=== PATIENT | male | born 1995 | race Caucasian/White ===

== ENCOUNTER 2017-02-12 14:39 | Inpatient (IN) | payer BC ==
[2017-02-12] MEDS ORDERED: IPRATROPIUM/ALBUTEROL 3 ML DEYVIAL IH ONE ×2 (14:44→15:44)
[2017-02-12] MEDS ORDERED: NS 1,000 ML IV ONE ×3 (14:44→16:28)
--- NOTE | 2017-02-12 14:46 | EDPHY ---
H & P HPI/ROS: HPI CHIEF COMPLAINT: Shortness of breath HISTORY OF PRESENT ILLNESS: This patient otherwise healthy 21-year-old male no significant medical history does not take any daily medications he presents emergency room by EMS after he went to an urgent care today for shortness of breath and wheezing his oxygen level was noted to be low in the 80s the Urgent Care called 911 gave him a DuoNeb. EMS arrived and evaluated was tachypneic, diffuse wheezing throughout all lung gruber moderate amount of respiratory distress. He is brought to the emergency room with a DuoNeb breathing treatment EN route. IV Solu-Medrol already given. Upon arrival here in emergency room is wheezing diffusely, tachypneic in the 30s , with bronchitic sounding cough. He does admit to no fever but does admit to productive sputum clear. Is noted to be tachycardic here. He tells me approximately a month ago was diagnosed with pneumonia completed a course of antibiotics. Went to a recent concert in [place] where he undertook a lot of smoking cigarettes and marijuana he tells me his lung shortness of breath got worse. Denies chest pain. Denies vomiting. Past Medical History: Pneumonia recently 1 month ago Past Surgical History: Denies recent surgical history Social History: Daily marijuana use, occasional tobacco Family History: Noncontributory ROS REVIEW OF SYSTEMS: A comprehensive 10 point review of systems is otherwise negative aside from elements mentioned in the history of present illness. Exam Constitutional appears nontoxic triage nursing summary reviewed, vital signs reviewed, awake/alert. Eyes normal conjunctivae and sclera, EOMI, PERRLA. HENT normal inspection, atraumatic, moist mucus membranes, no epistaxis, neck supple/ no meningismus, no raccoon eyes. Respiratory decreased breath sounds bilaterally but audible wheezing, Cardiovascular tachycardic, regular rhythm, no murmur, no edema, distal pulses normal. Gastrointestinal soft, non-tender, no rebound, no guarding, normal bowel sounds, no distension, no pulsatile mass. Genitourinary no CVA tenderness. Musculoskeletal no midline vertebral tenderness, full range of motion, no calf swelling, no tenderness of extremities, no meningismus, good pulses, neurovascularly intact. Skin pink, warm, & dry, no rash, skin atraumatic. Neurologic awake, alert and oriented x 3, AAOx3, moves all 4 extremities equally, motor intact, sensory intact, CN II-XII intact, normal cerebellar, normal vision, normal speech. Psychiatric normal mood/affect. Heme/Lymph/Immune no lymphadenopathy. Differential Diagnosis: Includes but is not limited to in a particular order, bronchitis, viral pneumonia, bacterial pneumonia, pneumothorax Medical Decision Making: Plan for this patient IV establishment, blood work, blood cultures, lactic acid, full chorus dancer, EKG, two view chest x-ray, DuoNeb breathing treatment, IV fluid bolus. Re-evaluation. Re-evaluation: EKG interpretation by me on record in [employer] system. Impression and time of EKG 15 10, this is sinus tachycardia rate of 121. Otherwise unremarkable EKG. 1544; re-evaluation at this time patient continues to wheeze however much improved after DuoNeb breathing treatment. He has received 2 L of fluid at this time. His heart rate is noted to be tachycardic in the 120s down from 1 50s when he arrived. He is improving. Chest x-rays reviewed shows no pneumonia. Plan for this patient 2nd DuoNeb breathing treatment re-evaluate. 1629: I did re-evaluate this patient at this time. He continues to be tachycardic. He did receive a 2nd DuoNeb breathing treatment which improved his lung aeration. He still wheezing. Due to ongoing wheezing, however no significant respiratory distress, ongoing tachycardia patient need to be admitted for bronchitis and pulmonary toilet. Chest x-ray reviewed shows no pneumonia. He is afebrile. Tachycardia has persistent most likely due to combination of wheezing, bronchitis, DuoNeb breathing treatments. And dehydration. This patient did have initial elevated lactic. After 2 L of fluids lactic did slightly go up. He does not appear septic. Does not have elevated white count he does not have a fever. There is no pneumonia on x-ray. I will not change the lactic acid. His lactic acid mainly up due to the wheezing, tachypnea, dehydration is behind on fluids. He is getting a 3rd L of fluid. Dr. Torres has accepted this patient. Patient be admitted to PCU. Source: Patient, EMS - Medical/Surgical History Hx Asthma: No Hx Chronic Respiratory Disease: No Hx Diabetes: No Hx Cardiac Disease: No Hx Renal Disease: No Hx Cirrhosis: No Hx Alcoholism: No Hx HIV/AIDS: No Hx Splenectomy or Spleen Trauma: No Other PMH: heart "electrical" issue - Social History Smoking Status: Current every day smoker Constitutional: Initial Vital Signs Temperature (C) 37.1 C 02/12/17 14:53 Heart Rate 152 H 02/12/17 14:53 Respiratory Rate 22 H 02/12/17 14:53 Blood Pressure 134/89 H 02/12/17 14:53 O2 Sat (%) 95 02/12/17 14:53 O2 Delivery Mode Room Air O2 (L/minute) 2 Allergies/Adverse Reactions: No Known Allergies Allergy (Unverified 12/02/15 02:06) Home Medications: Medication Instructions Recorded NK [No Known Home Meds] 12/02/15 Medical Decision Making - Data Points Laboratory Results: Laboratory Results 02/12/17 14:43 02/12/17 14:43 Medications Given: Discontinued Medications Albuterol/Ipratropium (Duoneb) 3 ml IH EDNOW ONE Stop: 02/12/17 14:45 Last Admin: 02/12/17 15:08 Dose: 3 ml Albuterol/Ipratropium (Duoneb) 3 ml IH EDNOW ONE Stop: 02/12/17 15:45 Last Admin: 02/12/17 15:53 Dose: 3 ml Albuterol/Ipratropium (Duoneb) 3 ml IH Q6HRS PRN PRN Reason: Short of Breath/Dyspnea Stop: 08/11/17 17:22 Last Admin: 02/13/17 09:05 Dose: 3 ml Azithromycin (Zithromax) 500 mg PO DAILY MABEL PRN Reason: Protocol Stop: 03/14/17 17:44 Last Admin: 02/12/17 17:40 Dose: 500 mg Sodium Chloride (Ns) 1,000 mls @ 0 mls/hr IV ONCE ONE; Wide Open PRN Reason: Protocol Stop: 02/12/17 14:45 Last Admin: 02/12/17 15:08 Dose: 1,000 mls Sodium Chloride (Ns) 1,000 mls @ 0 mls/hr IV ONCE ONE PRN Reason: Wide Open Stop: 02/12/17 15:03 Last Admin: 02/12/17 15:09 Dose: 1,000 mls Sodium Chloride (Ns) 1,000 mls @ 0 mls/hr IV ONCE ONE PRN Reason: Wide Open Stop: 02/12/17 16:29 Last Admin: 02/12/17 16:42 Dose: 1,000 mls Sodium Chloride (Ns) 1,000 mls @ 150 mls/hr IV CONT MABEL Stop: 08/11/17 17:29 Last Admin: 02/12/17 20:00 Dose: 1,000 mls Methylprednisolone Sodium Succinate (Solu-Medrol) 125 mg IVP ONCE ONE Stop: 02/13/17 00:24 Last Admin: 02/13/17 00:44 Dose: 125 mg Prednisone (Prednisone) 40 mg PO DAILY [facility] Stop: 08/11/17 17:29 Last Admin: 02/13/17 08:23 Dose: 40 mg Departure - Departure Disposition: [facility] Inpatient Acute Clinical Impression: Acute bronchitis Qualifiers: Bronchitis organism: unspecified organism Qualified Code(s): J20.9 - Acute bronchitis, unspecified Condition: Serious
[2017-02-12 14:53] LABS: % IMMATURE GRANULYOCYTES 0.3 % (0.0-1.1); ABSOLUTE IMMATURE GRANULOCYTES 0.03 10^3/uL (0.00-0.10); ADD DIFF? NO; ADD MORPH? NO; ADD SCAN? NO; ATYPICAL LYMPHOCYTE FLAG 30 (0-99); FRAGMENT RBC FLAG 0 (0-99); HEMATOCRIT 49.5 % (40.0-51.0); HEMOGLOBIN 17.1 g/dL (13.7-17.5); LEFT SHIFT FLG 0 (0-99); LIPEMIA HEMOLYSIS FLAG 90 (0-99); MEAN CELL HEMOGLOBIN 30.2 pg (27.9-34.1); MEAN CELL HEMOGLOBIN CONCENTR. 34.5 g/dL (32.4-36.7); MEAN CELL VOLUME 87.5 fL (81.5-99.8); MEAN PLATELET VOLUME 8.7 fL (8.7-11.7); PLATELET CLUMPS FLAG 0 (0-99); PLATELET COUNT 327 10^3/uL (150-400); RED BLOOD CELL COUNT 5.66 10^6/uL (4.40-6.38); RED CELL DISTRIBUTION WIDTH 12.1 % (11.5-15.2)
--- NOTE | 2017-02-12 15:12 | CPEKG ---
Heart Rate: 121 RR Interval: 496 P-R Interval: 120 QRSD Interval: 92 QT Interval: 324 QTC Interval: 460 P Wilmer: 86 QRS Wilmer: 89 T Wave Wilmer: 73 EKG Severity - ABNORMAL ECG - EKG Impression: SINUS TACHYCARDIA EKG Impression: HUAN, CONSIDER BIATRIAL ABNORMALITIES EKG Impression: INFERIOR Q WAVES, PROBABLY NORMAL VARIATION Electronically Signed By: Michel Ho 12-Feb-2017 20:01:12
[2017-02-12 15:13] LABS: ANION GAP 15 mEq/L (8-16); CALCIUM 9.8 mg/dL (8.5-10.4); CARBON DIOXIDE 23 mEq/l (22-31); CHLORIDE 102 mEq/L (97-110); CREATININE 0.9 mg/dL (0.7-1.3); GLOMERULAR FILTRATION RATE > 60; GLUCOSE 171 mg/dL (70-100); POTASSIUM 4.4 mEq/L (3.5-5.2); SODIUM 140 mEq/L (134-144)
[2017-02-12] MEDS ORDERED: ONDANSETRON 4 MG/2 ML VIAL IVP PRN (17:21)
[2017-02-12] MEDS ORDERED: ACETAMINOPHEN 325 MG TAB PO PRN (17:21)
[2017-02-12] MEDS ORDERED: ONDANSETRON DISINTEGRATING 4 MG TAB PO PRN (17:21)
[2017-02-12] MEDS ORDERED: NS 1,000 ML IV SCH (17:30)
[2017-02-12] MEDS: predniSONE 20 MG TAB PO SCH (17:39)
[2017-02-12] MEDS: BENZONATATE 100 MG CAP PO PRN (17:40)
[2017-02-12] MEDS ORDERED: AZITHROMYCIN 250 MG TAB PO SCH (17:45)
[2017-02-12 17:48] LABS: ALBUMIN 4.7 g/dL (3.5-5.0); BILIRUBIN,TOTAL 1.3 mg/dL (0.1-1.4); BILIRUBIN-CONJUGATED 0.5 mg/dL (0.0-0.5); BILIRUBIN-UNCONJUGATED 0.8 mg/dL (0.0-1.1); TOTAL PROTEIN 7.5 g/dL (6.3-8.2)
--- NOTE | 2017-02-12 18:05 | GHP ---
[f rep st] HISTORY AND PHYSICAL DATE OF ADMISSION: 02/12/2017 CHIEF COMPLAINT: Tachycardia, acute hypoxia. HISTORY OF PRESENT ILLNESS: a 21-year-old male with a past medical history of SVT, status post ablation in 2014 presenting to the ER by EMS after having acute shortness of breath and wheezing. Was initially seen at Urgent Care where oxygen levels was in the 80s. He was tachypneic to the 40s and tachy to 150s. He reports fevers, chills and sweats last night. One episode of emesis last night with small streaks of blood. One episode of diarrhea here in ED today. Also, c/o a sore throat and productive cough of yellow sputum for the last couple days. He was diagnosed with pneumonia a month ago and completed course of antibiotics. Was in [place] this past weekend for a music festival and smoked at least a pack of cigarettes a day, which he normally does not do, as well as marijuana. He denies other illicits. REVIEW OF SYSTEMS: I completed a 10-point review of systems, negative except as noted. PAST SURGICAL HISTORY: SVT with a history of ablation in 2014 at [place]. PAST MEDICAL HISTORY: None. MEDICATIONS: None. ALLERGIES: None. SOCIAL HISTORY: Lives in [place] Does not normally smoke tobacco, but smoked a pack a day this past weekend, smoked marijuana this weekend. Denies alcohol. FAMILY HISTORY: No CAD or lung disease. PHYSICAL EXAM: VITAL SIGNS: Temperature 37.1, blood pressure 134/89, heart rate of 120s to 150s, respirations 20s to 30s, 95% on room air, now 92% on 2 L. GENERAL: Patient appears uncomfortable, coughing, mildly diaphoretic. HEENT : Dry mucous membranes. CV: Tachy but regular. No murmurs, gallops, or rubs. LUNGS: Diffuse expiratory wheezes throughout, with moderate airway movement. ABDOMEN: Soft, nontender, nondistended, positive bowel sounds. : No suprapubic tenderness. MUSCULOSKELETAL: With 5/5 upper and lower extremities strength. NEUROLOGIC: Cranial nerves II-XII intact. PSYCH: Alert and oriented x3, very pleasant. SKIN: Warm and dry, no ulceration. Right cervical lymphadenopathy. LABORATORY DATA: Lactate 2.7, now 3.4, sodium 140, potassium 4.4, chloride 102 , anion gap 15, glucose of 170, calcium 9.8, WBC 8.58, hemoglobin 17, hematocrit 49, platelets of 327. A chest x-ray, good air expansion, no effusion or opacity. EKG is sinus tachycardiac. ASSESSMENT AND PLAN: 1. Acute hypoxic respiratory failure: Query bronchitis versus acute inflammation given excessive tobacco and marijuana use this weekend. There is no evidence of pneumonia. Check a viral panel. Treat with DuoNeb, steroids, cough suppressant. Added Azithro for bronchitis/inflammation. 2. Tachycardia: suspect diffusely dehydrated given music festival and neb treatments. Continue aggressive intravenous fluid resuscitation. Telemetry with h/o SVT. 3. Lactic acidosis: suspect due to dehydration. Denies other illicits. Afebrile. No PNA on CXR. Check viral panel, strep. 4. Sore throat, check a strep swab. 5. History of supraventricular tachycardia: ablation 2014 with no recurrence. Monitor on telemetry. 6. Marijuana abuse. counseled on cessation. 7. Tobacco use: doesn't normally smoke. Counseled on cessation. 8. Diet: Regular. 9. Deep venous thrombosis prophylaxis, low risk, ambulatory. DISPOSITION: Patient warrants inpatient admission given acute tachycardia and hypoxia, warranting PCU and telemetry, Jacek Medina. /[id number]/MODL MTDMayur
[2017-02-12] MEDS: IPRATROPIUM/ALBUTEROL 3 ML DEYVIAL IH PRN (23:41)
[2017-02-12] MEDS: guaiFENesin/CODEINE PHOS 10 ML UDCUP PO PRN (23:58)
[2017-02-13] MEDS ORDERED: methylPREDNISolone SOD SUCC 125 MG/2 ML VIAL IVP ONE (00:23)
[2017-02-13] MEDS ORDERED: SODIUM CL NASAL 45 ML BTL EACHNARE PRN (01:19)
[2017-02-13 04:32] LABS: HEMOGLOBIN 14.6 g/dL (13.7-17.5); MEAN CELL HEMOGLOBIN 30.6 pg (27.9-34.1); MEAN CELL HEMOGLOBIN CONCENTR. 34.8 g/dL (32.4-36.7); MEAN CELL VOLUME 88.1 fL (81.5-99.8); RED BLOOD CELL COUNT 4.77 10^6/uL (4.40-6.38); RED CELL DISTRIBUTION WIDTH 12.1 % (11.5-15.2)
[2017-02-13 04:48] LABS: ANION GAP 10 mEq/L (8-16); CALCIUM 9.4 mg/dL (8.5-10.4); CARBON DIOXIDE 22 mEq/l (22-31); CHLORIDE 105 mEq/L (97-110); CREATININE 0.8 mg/dL (0.7-1.3); GLOMERULAR FILTRATION RATE > 60; GLUCOSE 195 mg/dL (70-100); POTASSIUM 4.8 mEq/L (3.5-5.2); SODIUM 137 mEq/L (134-144)
[2017-02-13] MEDS: guaiFENesin/CODEINE PHOS 10 ML UDCUP PO PRN (06:22)
[2017-02-13] MEDS: predniSONE 20 MG TAB PO SCH ×2 (08:23→18:21)
[2017-02-13] MEDS: IPRATROPIUM/ALBUTEROL 3 ML DEYVIAL IH PRN (09:05)
--- NOTE | 2017-02-13 15:07 | HOSPPROG ---
Hospitalist Progress Note Assessment/Plan: 21 yo male admitted for SOB and tachycardia #Bronchitis, possibly viral vs reactive airway disease -Increase steroids -Start Azithromycin #Tachycardia, due to difficulty breathing #Hx of SVT, s/p ablation. No evidence of recurrence #Dehydration: resolved #Lactic Acidosis #Tobacco Abuse: cessation providing Dispo: make inpatient Subjective: still SOB, still on supplemental O2 Objective: Vital Signs Temp Pulse Resp BP Pulse Ox 36.9 C 122 H 24 H 112/58 L 95 02/13/17 12:03 02/13/17 12:03 02/13/17 12:03 02/13/17 12:03 02/13/17 12:03 Microbiology 02/12/17 19:11 Respiratory Panel (PCR) - Final Nasal, Sinus - Swab Human Rhinovirus/Enterovirus Laboratory Results 02/13/17 03:33 02/13/17 03:33 02/12/17 02/13/17 02/14/17 05:59 05:59 05:59 Intake Total 4600 320 Output Total 600 400 Balance 4000 -80 - Physical Exam Constitutional: no apparent distress, appears nourished Eyes: PERRL, EOMI Ears, Nose, Mouth, Throat: moist mucous membranes Cardiovascular: regular rate and rhythym, no murmur, rub, or gallop Respiratory: rhonchi, No clear to auscultation Gastrointestinal: soft, non-tender abdomen Skin: warm Neurologic: AAOx3, sensation intact bilaterally Psychiatric: interacting appropriately, not anxious ICD10 Worksheet Patient Problems: Problems Problem Status Onset Acute bronchitis Acute
[2017-02-13] MEDS ORDERED: D50W 25 GM/50 ML SYR IVP PRN (15:58)
[2017-02-13] MEDS: IPRATROPIUM/ALBUTEROL 3 ML DEYVIAL IH SCH ×2 (17:05→23:42)
[2017-02-13] MEDS: INSULIN LISPRO 100 UNIT/ML SC SCH (17:32)
[2017-02-13] MEDS: AZITHROMYCIN 250 MG TAB PO SCH (17:33)
[2017-02-14 04:26] LABS: % IMMATURE GRANULYOCYTES 0.7 % (0.0-1.1); ADD DIFF? NO; ADD MORPH? NO; ADD SCAN? NO; ATYPICAL LYMPHOCYTE FLAG 0 (0-99); FRAGMENT RBC FLAG 0 (0-99); HEMATOCRIT 40.8 % (40.0-51.0); HEMOGLOBIN 13.9 g/dL (13.7-17.5); LEFT SHIFT FLG 10 (0-99); LIPEMIA HEMOLYSIS FLAG 90 (0-99); MEAN CELL HEMOGLOBIN 30.2 pg (27.9-34.1); MEAN CELL HEMOGLOBIN CONCENTR. 34.1 g/dL (32.4-36.7); MEAN CELL VOLUME 88.7 fL (81.5-99.8); MEAN PLATELET VOLUME 8.8 fL (8.7-11.7); PLATELET CLUMPS FLAG 0 (0-99); PLATELET COUNT 284 10^3/uL (150-400); RED CELL DISTRIBUTION WIDTH 12.5 % (11.5-15.2)
[2017-02-14] MEDS: IPRATROPIUM/ALBUTEROL 3 ML DEYVIAL IH SCH ×4 (06:23→20:43)
[2017-02-14] MEDS: INSULIN LISPRO 100 UNIT/ML SC SCH ×3 (08:13→18:15)
[2017-02-14] MEDS: predniSONE 20 MG TAB PO SCH ×2 (08:32→18:51)
[2017-02-14] MEDS: AZITHROMYCIN 250 MG TAB PO SCH (08:32)
--- NOTE | 2017-02-14 08:54 | HOSPPROG ---
Hospitalist Progress Note Assessment/Plan: #Acute hypoxic resp failure: due to viral process/bronchitis, THC/tobacco -check RA sat today #Rhinovirus/enterovirus: supportive care, Azithro #Tachycardia: intermittent. Due to nebs #Leukocytosis: due to prednisone #Diet: regular #Disp: cont telemetry, Duonebs Subjective: feels better. Still SOB with exertion Objective: Vital Signs Temp Pulse Resp BP Pulse Ox 36.2 C 108 H 22 H 94/65 L 92 02/14/17 08:00 02/14/17 08:00 02/14/17 08:00 02/14/17 08:00 02/14/17 08:00 Laboratory Results 02/14/17 03:21 02/13/17 03:33 02/13/17 02/14/17 02/15/17 05:59 05:59 05:59 Intake Total 4600 3997 Output Total 600 400 Balance 4000 3597 - Physical Exam Constitutional: no apparent distress Eyes: PERRL Ears, Nose, Mouth, Throat: moist mucous membranes, hearing normal Cardiovascular: regular rate and rhythym Respiratory: expiratory wheeze, rhonchi Gastrointestinal: normoactive bowel sounds, soft, non-tender abdomen Genitourinary: no bladder fullness Skin: warm Musculoskeletal: full muscle strength Neurologic: AAOx3, CN II-XII Intact Psychiatric: interacting appropriately ICD10 Worksheet Patient Problems: Problems Problem Status Onset Acute bronchitis Acute
[2017-02-15] MEDS: IPRATROPIUM/ALBUTEROL 3 ML DEYVIAL IH SCH ×2 (05:28→10:46)
[2017-02-15] MEDS: INSULIN LISPRO 100 UNIT/ML SC SCH ×2 (09:41→13:40)
[2017-02-15] MEDS: AZITHROMYCIN 250 MG TAB PO SCH (09:42)
[2017-02-15] MEDS: predniSONE 20 MG TAB PO SCH (09:42)
[2017-02-15] MEDS: BENZONATATE 100 MG CAP PO PRN (09:42)
[2017-02-15 11:53] VITALS: BP 111/78; PULSE 125; RESP 15; TEMP 98; O2SAT 90
--- NOTE | 2017-02-15 14:24 | HOSPPROG ---
Hospitalist Progress Note Assessment/Plan: #Acute hypoxic resp failure: due to viral process/bronchitis, THC/tobacco -cont pred, nebs, azithro #Rhinovirus/enterovirus: supportive care, Azithro #Tachycardia: intermittent. Due to nebs, acute illness #Leukocytosis: due to prednisone #Diet: regular #Disp: DC today Subjective: feeling much better. Minimal SOB except with exertion Objective: Vital Signs Temp Pulse Resp BP Pulse Ox 36.7 C 125 H 15 111/78 90 L 02/15/17 11:52 02/15/17 11:52 02/15/17 11:52 02/15/17 11:52 02/15/17 11:52 Laboratory Results 02/14/17 03:21 02/13/17 03:33 02/14/17 02/15/17 02/16/17 05:59 05:59 05:59 Intake Total 3997 850 Output Total 400 325 Balance 3598 525 ICD10 Worksheet Patient Problems: Problems Problem Status Onset Acute bronchitis Acute
--- NOTE | 2017-02-15 15:14 | GDS ---
[f rep st] DISCHARGE SUMMARY DISCHARGE DIAGNOSES: 1. Acute hypoxic respiratory failure. 2. Tachycardia. 3. Enteral virus/rhino virus. 4. Bronchitis. 5. Leukocytosis. 6. Tobacco use. 7. Marijuana abuse. 8. History of SVT status post ablation. HISTORY OF PRESENT ILLNESS: A 21-year-old male with a past history of SVT, status post ablation in 2014, presenting to the ER after having acute shortness of breath and wheezing. He was initially se en at urgent care where his oxygen levels were in the 80s. At that time, he was tachypneic to the 4 0s and tachycardic to 150s. He reports recent fevers, chills and sweats. The day prior to admissio n he had an episode of emesis and a couple episodes of diarrhea. He has also been complaining of so re throat and productive cough and yellow sputum for the last couple of days. He was diagnosed with pneumonia a month ago and completed a course of antibiotics. The past weekend before admission he had been in [place] for a music festival and smoked at least a pack of cigare ttes a day which is not his norm as well as smoking a lot of marijuana. He denies any other illicit s. HOSPITAL COURSE BY PROBLEM: 1. Acute hypoxic respiratory failure: This is multifactorial given Enteral virus/rhino virus plus bronchitis in the setting of excessive tobacco and marijuana use. The patient required up to 5 L. He was treated with DuoNeb, azithromycin and steroids with improvement. He still is wheezing on exa m but is moving good air today. Will continue a burst of prednisone, albuterol and azithromycin. 2. Tachycardia: Secondary to significant dehydration, use of albuterol treatments and acute illnes s. He was resuscitated aggressively with improvement. 3. Lactic acidosis: Lactic was elevated greater than 3 at time of admission. Suspect due to signi ficant dehydration. Drug panel was negative except for marijuana. 4. Sore throat. Negative strep. 5. History of supraventricular tachycardia, status post ablation 2014 without recurrence. 6. Polysubstance abuse: Patient was advised not to use marijuana and tobacco again. DISPOSITION: Patient stable for discharge. NEW MEDICATIONS: 1. Prednisone. 2. Azithromycin. 3. Albuterol. FOLLOWUP: With his primary care physician. /[id number]/MODL
== END 2017-02-15 14:19 | disposition home or self-care (01) | DRG 189 ==
LOC: EDUNIT# → F2W 17:57
PROVIDERS: ADMIT Internal Medicine; ATTEND Internal Medicine
DX: J96.01 Acute respiratory failure with hypoxia (principal); J40 Bronchitis, not specified as acute or chronic; A08.39 Other viral enteritis; B34.8 Other viral infections of unspecified site; E87.2 Acidosis; E86.0 Dehydration; F12.10 Cannabis abuse, uncomplicated; F17.210 Nicotine dependence, cigarettes, uncomplicated
CPT/HCPCS: 80305

== ENCOUNTER 2018-03-03 16:24 | Inpatient (IN) | payer BC ==
[2018-03-03] MEDS ORDERED: IPRATROPIUM/ALBUTEROL 3 ML DEYVIAL IH ONE ×2 (16:37→18:12)
[2018-03-03] MEDS ORDERED: predniSONE 20 MG TAB PO ONE (16:37)
--- NOTE | 2018-03-03 16:40 | EDPHY ---
H & P Stated Complaint: hx asthma/soc/cough [place] [facility] [place]ster[place]/new inhaler/did n Time Seen by Provider: 03/03/18 16:28 - Personal History Current Tetanus Diphtheria and Acellular Pertussis (TDAP): Yes - Medical/Surgical History Hx Asthma: Yes Hx Chronic Respiratory Disease: No Hx Diabetes: No Hx Cardiac Disease: No Hx Renal Disease: No Hx Cirrhosis: No Hx Alcoholism: No Hx HIV/AIDS: No Hx Splenectomy or Spleen Trauma: No Other PMH: heart "electrical" issue asthma pna - Social History Smoking Status: Former smoker Constitutional: Initial Vital Signs Temperature (C) 36.6 C 03/03/18 16:28 Heart Rate 138 H 03/03/18 16:28 Respiratory Rate 20 03/03/18 16:28 Blood Pressure 150/94 H 03/03/18 16:28 O2 Sat (%) 92 03/03/18 16:28 O2 Delivery Mode Nasal Cannula Allergies/Adverse Reactions: No Known Allergies Allergy (Verified 03/03/18 16:26) Home Medications: Medication Instructions Recorded Albuterol [Proventil Inhaler HFA 1 - 2 puffs IH Q4H #1 mdi 02/16/17 (*)] Albuterol [Proventil Inhaler] 1 - 2 puffs IH Q4 #1 mdi 03/03/18 Qvar 03/03/18 predniSONE 40 mg PO DAILY #10 tab 03/03/18 Medical Decision Making - Diagnostics Imaging Results: Imaging Impressions Chest X-Ray 03/03/18 16:38 Impression: No acute cardiopulmonary process. Imaging: I viewed and interpreted images myself ED Course/Re-evaluation: CHIEF COMPLAINT: Asthma exacerbation HISTORY OF PRESENT ILLNESS: The patient is a 22 y/o male with a history of asthma, SVT, and pneumonia complaining of shortness of breath and a cough for the last several days. Due to these symptoms he has been using his albuterol inhaler and Quvar more than normal, without relief of symptoms. He went to an urgent care today and was diagnosed with pneumonia. They prescribed him antibiotics, but he has not filled these. His symptoms continued to worsen and he began to vomit due to the coughing, so he decided to present to the emergency department. Denies headache , chest pain, abdominal pain, urinary or bowel complaints, nausea, numbness, paresthesias, fever. REVIEW OF SYSTEMS: A 10 point review of systems was performed and is negative with the exception of the elements mentioned in the history of present illness. PHYSICAL EXAM: HR, BP, O2 Sat, RR. Temp noted General Appearance: Vomiting, alert, well hydrated, appropriate, and non-toxic appearing. Head: Atraumatic without scalp tenderness or obvious injury Eyes: Pupils equal, round, reactive to light and accommodation, EOMI, no trauma , no injection. Ears: Clear bilaterally, no perforation, normal landmarks Nose: Atraumatic, no rhinorrhea, clear. Throat: There is no erythema or exudates, no lesions, normal tonsils, mucus membranes moist. Neck: Supple, nontender, no lymphadenopathy. Respiratory: Bilateral wheezes, expiratory greater than inspiratory. No retractions. Cardiovascular: Regular rate and rhythm, no murmurs, rubs, or gallops. Bilateral carotid, radial, dorsalis pedis, and posterior tibial pulses intact. Good capillary refill all extremities. Gastrointestinal: Abdomen is soft, nontender, non-distended, no masses, no rebound, no guarding, no peritoneal signs. Musculoskeletal: Normal active ROM of all extremities, atraumatic. Neurological: Alert, appropriate, and interactive. Nonfocal neuro. Skin: No rashes, good turgor, no nodules on palpation. Past medical history: Asthma, SVT, and pneumonia Past surgical history: Denies Family history: Denies Social history: Friend at bedside, student at , single DIAGNOSTICS/PROCEDURES/CRITICAL CARE TIME: Chest x-ray: No acute findings DIFFERENTIAL DIAGNOSIS: The differential diagnosis for the patient's shortness of breath and hypoxemia included but was not limited to asthma exacerbation, pneumonia, myocardial infarction, acute mountain sickness, high altitude pulmonary edema, congestive heart failure, and pulmonary embolus. MEDICAL DECISION MAKING: The patient is a 22 y/o male with a history of asthma, SVT, and pneumonia presenting with worsening shortness of breath and a cough for the last several days. On exam he has bilateral wheezes (expiratory greater than inspiratory) Chest x-ray ordered; albuterol inhaler and 60 mg PO Prednisone administered. 1703: I reviewed patient's chest x-ray, which shows no acute findings. He does not need to be placed on antibiotics. He will need a continuous steroids and an inhaler. 1716: Reassessed patient and discussed imaging findings. He is still vomiting; IV established, 4 mg IV Zofran and 10 mg IV Decadron given. 1809: Reassessed patient, he is feeling better and his lungs sound better. Additional DuoNeb administered prior to discharge. I have advised him to follow up with a Outdoor Illuminating Engineer. I have also advised him to buy Mucinex over the counter , take Prednisone, and use his inhalers. 1826: Patient is still hypoxemic and is now tachycardic with a rate of 140. He will need to be admitted. 1835: Consulted with hospitalist service, Dr. Torres accepts admission of this patient. 500mg IV Zithromax administered at the request of Dr. Torres. 1845: Reassessed patient, he continues to feel better. He is comfortable with plan for admission. - Data Points Medications Given: Discontinued Medications Albuterol/Ipratropium (Duoneb) 3 ml IH EDNOW ONE Stop: 03/03/18 16:38 Last Admin: 03/03/18 16:49 Dose: 3 ml Albuterol/Ipratropium (Duoneb) 3 ml IH EDNOW ONE Stop: 03/03/18 18:13 Last Admin: 03/03/18 18:24 Dose: 3 ml Dexamethasone (Decadron Injection) 10 mg IVP EDNOW ONE Stop: 03/03/18 17:17 Last Admin: 03/03/18 17:29 Dose: 10 mg Ondansetron HCl (Zofran) 4 mg IVP EDNOW ONE Stop: 03/03/18 17:17 Last Admin: 03/03/18 17:29 Dose: 4 mg Prednisone (Prednisone) 60 mg PO EDNOW ONE Stop: 03/03/18 16:38 Last Admin: 03/03/18 16:50 Dose: 60 mg Departure - Departure Disposition: [facility]patient Acute Clinical Impression: Cough, Hypoxemia, Tachycardia Exacerbation of asthma Qualifiers: Asthma severity: moderate Asthma persistence: persistent Qualified Code(s): J45.41 - Moderate persistent asthma with (acute) exacerbation Condition: Fair Instructions: Asthma (ED), Acute Cough (ED), Shortness of Breath (ED) Additional Instructions: 1. Do not take the antibiotics. 2. Take Prednisone as prescribed, you may start this tomorrow. 3. Use the inhaler as prescribed. 4. Buy Mucinex over the counter. 5. Follow-up with your primary doctor within 72 hours. 6. Follow-up with a narrative writer within the next week; you have been referred to Dr. Sam. 7. Return to the Emergency Department for fever, chest pain, shortness of breath , increasing pain or other worsening of condition. Referrals: [facility],. [Clinic] - As per Instructions Colby Sam MD [Medical Doctor] - As per Instructions Prescriptions: Albuterol [Proventil Inhaler] 1 - 2 puffs IH Q4 #1 mdi predniSONE 40 mg PO DAILY #10 tab Report Scribed for: Brian Renee Report Scribed by: Jannie Mott Date of Report: 03/03/18 Time of Report: 16:35
[2018-03-03] MEDS ORDERED: DEXAMETHASONE 10 MG/ML VIAL IVP ONE (17:16)
[2018-03-03] MEDS ORDERED: ONDANSETRON 4 MG/2 ML VIAL IVP ONE (17:16)
[2018-03-03] MEDS ORDERED: ONDANSETRON 4 MG/2 ML VIAL IVP PRN (18:37)
[2018-03-03] MEDS ORDERED: ACETAMINOPHEN 325 MG TAB PO PRN (18:37)
[2018-03-03] MEDS ORDERED: ONDANSETRON DISINTEGRATING 4 MG TAB PO PRN (18:37)
[2018-03-03] MEDS ORDERED: AZITHROMYCIN IV 500 MG in NS 250 ML IV ONE (18:37)
[2018-03-03] MEDS ORDERED: BENZONATATE 100 MG CAP PO PRN (18:40)
[2018-03-03] MEDS ORDERED: IBUPROFEN 600 MG TAB PO PRN (20:35)
[2018-03-03] MEDS ORDERED: NS 1,000 ML IV SCH (20:45)
[2018-03-03] MEDS: guaiFENesin 200 MG/10 ML UDL PO PRN (20:45)
--- NOTE | 2018-03-03 21:04 | GHP ---
[f rep st] HISTORY AND PHYSICAL DATE OF ADMISSION: 03/03/2018 CHIEF COMPLAINT: Shortness of breath, wheezing. HISTORY OF PRESENT ILLNESS: A pleasant 22-year-old male with history of asthma, SVT, and pneumonia l ast year, complaining of shortness of breath and cough for the last several days. 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 He had a temperature of 101 last night. Reports chills, sore th roat, myalgias, and headache. He had diarrhea today. Has been taking in liquids but decreased appet ite. He went to Urgent Care today, was diagnosed with pneumonia. They prescribed him antibiotics bu t he has not filled these. His symptoms worsened and he began to vomit due to the coughing, thus pre sented to the ER. REVIEW OF SYSTEMS: I completed a 10-point review of systems, negative except as noted in HPI. PAST MEDICAL HISTORY: Asthma, prior pneumonia, SVT. PAST SURGICAL HISTORY: Ablation. FAMILY HISTORY: No asthma. SOCIAL HISTORY: Lives in [place]. 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 Occasional alcohol. Will eat edibl es but does not smoke. HOME MEDICATIONS: QVAR, albuterol. ALLERGIES: None. PHYSICAL EXAMINATION: VITAL SIGNS: Temperature 37.2, blood pressure 122/81, heart rate is ranging 1 20 to 140s, respirations 20s to 30s, 91% on 5 L. GENERAL: He is ill appearing, pale, diaphoretic, b ut no acute distress. HEENT: PERRLA. Dry mucous membranes. CV: Tachycardic but regular. LUNGS: Significant expiratory wheezing. Poor air movement. Coughing during exam. ABDOMEN: Soft, nontend er, nondistended. Positive bowel sounds. : No [place]. MUSCULOSKELETAL: 5/5 upper and lower extr emity strength. NEURO: 2 through 12 intact. PSYCH: Alert and oriented x3. LABS: Pending. Chest x-ray is personally reviewed by me, hyperexpanded, no opacity or effusion, pos sible bronchitis. ASSESSMENT AND PLAN: 1. Acute chronic obstructive pulmonary disease exacerbation: Secondary to bronchitis versus viral i nfection. No pneumonia on x-ray. Respiratory PCR is pending. Treat with DuoNeb, steroids, antituss david. We will start azithromycin for anti-inflammatory purposes. He is afebrile. 2. Tachycardia: Secondary dehydration and back to back nebulizers. Monitor on telemetry in the PCU . 3. Emesis: Secondary to cough. 4. Diet: Regular. 5. Deep venous thrombosis prophylaxis: Low risk. 6. Disposition: Patient warrants observation admission given acute asthma exacerbation, possible vi ral infection. /[id number]/MODL
[2018-03-03] MEDS: IPRATROPIUM/ALBUTEROL 3 ML DEYVIAL IH SCH (22:15)
[2018-03-04] MEDS: guaiFENesin 200 MG/10 ML UDL PO PRN ×2 (02:24→22:26)
[2018-03-04] MEDS: IPRATROPIUM/ALBUTEROL 3 ML DEYVIAL IH SCH ×4 (05:22→20:41)
[2018-03-04] MEDS: AZITHROMYCIN 250 MG TAB PO SCH (09:41)
[2018-03-04] MEDS: predniSONE 20 MG TAB PO SCH (09:42)
[2018-03-04] MEDS ORDERED: PNEUMOCOCCAL 0.5ML VACCINE VIAL IM ONE (12:01)
--- NOTE | 2018-03-04 15:48 | HOSPPROG ---
Hospitalist Progress Note Assessment/Plan: * Asthma exacerbation -steroids, nebs * Acute respiratory failure - still tenuous 4L * Viral bronchitis - positive rhinovirus -consider DC abx Subjective: Still SOB Objective: Vital Signs Temp Pulse Resp BP Pulse Ox 36.9 C 121 H 18 108/60 89 L 03/04/18 13:46 03/04/18 15:29 03/04/18 15:29 03/04/18 13:46 03/04/18 15:29 Microbiology 03/03/18 19:05 Respiratory Panel (PCR) - Final Nasal, Sinus - Swab Human Rhinovirus/Enterovirus Laboratory Results 03/03/18 21:19 03/03/18 03/04/18 03/05/18 05:59 05:59 05:59 Intake Total 250 Balance 250 tele - sinus tachy HR 136 CXR viewed, my personal interpretation is - hyperexpanded, no infiltrate - Physical Exam Constitutional: appears nourished, not in pain, No chronically ill appearing, No unkempt Cardiovascular: no murmur, rub, or gallop, tachycardia, No edema Respiratory: expiratory wheeze (and inspiratory wheeze), respiratory distress, rhonchi Gastrointestinal: normoactive bowel sounds, soft, non-tender abdomen, no palpable masses Skin: no rashes or abrasions, no fluctuance, no induration Neurologic: AAOx3, sensation intact bilaterally Psychiatric: interacting appropriately, not anxious, not encephalopathic, thought process linear ICD10 Worksheet Patient Problems: Problems Problem Status Onset Cough Acute Exacerbation of asthma Acute Hypoxemia Acute Tachycardia Acute Acute bronchitis Acute
[2018-03-04] MEDS: BECLOMETHASONE QVAR 40 REDIHALER 120 INH/10.6 GM MDI IH SCH (22:06)
[2018-03-05] MEDS: IPRATROPIUM/ALBUTEROL 3 ML DEYVIAL IH SCH ×2 (02:50→07:51)
[2018-03-05] MEDS: BECLOMETHASONE QVAR 40 REDIHALER 120 INH/10.6 GM MDI IH SCH ×2 (07:51→20:18)
[2018-03-05] MEDS: AZITHROMYCIN 250 MG TAB PO SCH (08:02)
[2018-03-05] MEDS: predniSONE 20 MG TAB PO SCH (08:02)
--- NOTE | 2018-03-05 10:12 | PDMN ---
Medical Necessity Medical necessity: MCG: M100 COPD A-2 days: 22 year old presented with bronchitis, tachycardia, dehydration, n/v. Status deteriorating with continued tachycardia 110s-120s, Oxygen needs remain at 4 liters with decreasing O2 sat in 80's, hypotensive episode 95/64, continues on scheduled nebs and steroids, change to inpatient 03/04/18 at 1232.
--- NOTE | 2018-03-05 10:43 | ASMTCMCOM ---
CM Note CM Note Notes: Patient with asthma presents with an exacerbation r/t rhinovirus infection. He had been diagnosed with PNA at urgent care - we will consider d/c'ing antibiotics. He is being treated with steroids and nebulizers. Patient lives independently with roommates, is employed at [employer]. I anticipate he will discharge independently; Case Management available for any needs. Date Signed: 03/05/2018 10:43 AM Electronically Signed By:Olesya Suarez RN
[2018-03-05] MEDS ORDERED: LEVALBUTEROL 1.25 MG/3 ML DEYVIAL ONE (14:54)
[2018-03-05] MEDS: LEVALBUTEROL 1.25 MG/3 ML DEYVIAL IH SCH ×2 (14:56→20:19)
--- NOTE | 2018-03-05 16:20 | HOSPPROG ---
Hospitalist Progress Note Assessment/Plan: * Asthma exacerbation -steroids, nebs * Acute respiratory failure - still tenuous 4L * Viral bronchitis - positive rhinovirus -consider DC abx Subjective: Slow improvement Objective: Vital Signs Temp Pulse Resp BP Pulse Ox 36.8 C 108 H 21 H 104/69 91 L 03/05/18 16:11 03/05/18 16:11 03/05/18 16:11 03/05/18 16:11 03/05/18 16:11 03/04/18 03/05/18 03/06/18 05:59 05:59 05:59 Intake Total 1150 Balance 1150 - Physical Exam Constitutional: no apparent distress, appears nourished, not in pain Cardiovascular: regular rate and rhythym, no murmur, rub, or gallop Respiratory: no respiratory distress, expiratory wheeze (and inspiratory), rhonchi Gastrointestinal: normoactive bowel sounds, soft, non-tender abdomen, no palpable masses Skin: no rashes or abrasions, no fluctuance, no induration Neurologic: AAOx3, sensation intact bilaterally Psychiatric: interacting appropriately, not anxious, not encephalopathic, thought process linear ICD10 Worksheet Patient Problems: Problems Problem Status Onset Cough Acute Exacerbation of asthma Acute Hypoxemia Acute Tachycardia Acute Acute bronchitis Acute
--- NOTE | 2018-03-05 16:31 | ASMTCMCOM ---
CM Note CM Note Notes: Patient needs a PCP. I gave him the phone # for [facility] central scheduling. He will call to make an appointment before he's discharged. Date Signed: 03/05/2018 04:31 PM Electronically Signed By:Olesya Suarez RN
[2018-03-06] MEDS: LEVALBUTEROL 1.25 MG/3 ML DEYVIAL IH SCH ×3 (05:35→20:48)
[2018-03-06] MEDS: BECLOMETHASONE QVAR 40 REDIHALER 120 INH/10.6 GM MDI IH SCH (08:50)
[2018-03-06] MEDS: ALBUTEROL 3 ML DEYVIAL IH PRN (08:57)
[2018-03-06 09:30] LABS: PLATELET COUNT 272 10^3/uL (150-400)
[2018-03-06] MEDS: AZITHROMYCIN 250 MG TAB PO SCH (09:30)
[2018-03-06] MEDS: predniSONE 20 MG TAB PO SCH (09:30)
[2018-03-06] MEDS: methylPREDNISolone SOD SUCC 40 MG/ML VIAL IVP SCH ×2 (13:36→22:15)
[2018-03-06] MEDS: ACETYLCYSTEINE 10% IH/PO 4 ML VIAL IH SCH ×3 (15:06→20:52)
--- NOTE | 2018-03-06 15:17 | HOSPPROG ---
Hospitalist Progress Note Assessment/Plan: * Asthma exacerbation -steroids, nebs -very slow improvement - consult pulmonary -change to IV steroids -add Mucomyst * Acute respiratory failure - still tenuous 4L * Viral bronchitis - positive rhinovirus -consider DC abx Subjective: maybe better? Objective: Vital Signs Temp Pulse Resp BP Pulse Ox 37.2 C 106 H 18 108/70 90 L 03/06/18 12:00 03/06/18 12:00 03/06/18 12:00 03/06/18 12:00 03/06/18 12:00 Laboratory Results 03/06/18 09:21 03/06/18 09:21 03/05/18 03/06/18 03/07/18 05:59 05:59 05:59 Intake Total 1150 420 Balance 1150 420 d/w Dr. Sam - pulmonary to consult CXR viewed, my personal interpretation is - no infiltrate - Physical Exam Constitutional: no apparent distress, appears nourished, not in pain Cardiovascular: regular rate and rhythym, no murmur, rub, or gallop Respiratory: no respiratory distress, expiratory wheeze, rhonchi, No inspiratory crackles Gastrointestinal: normoactive bowel sounds, soft, non-tender abdomen, no palpable masses Skin: no rashes or abrasions, no fluctuance, no induration Neurologic: AAOx3, sensation intact bilaterally Psychiatric: interacting appropriately, not anxious, not encephalopathic, thought process linear ICD10 Worksheet Patient Problems: Problems Problem Status Onset Cough Acute Exacerbation of asthma Acute Hypoxemia Acute Tachycardia Acute Acute bronchitis Acute
--- NOTE | 2018-03-06 16:36 | ASMTCMCOM ---
CM Note CM Note Notes: 03/06/2018 Case Management Note Met w/pt and girlfriend Ruel [phone] to discuss need for appointments after discharge. Pt requested case management contact father David Bender to sort out which MD's are covered by insurance. David can be reached at [phone]. David requested an email sent to [email or web address] Sent email requesting a blowing weasand as well as a ladle cleaner for follow after d/c. David to check if [facility] is covered by insurance, if Dr. Bryan Sam [facility] ladle cleaner is covered and which blowing weasand is covered. David to call back or email back info. Case Management did not identify any further d/c needs. Case Management to set follow up appointmets pending info from David. Case Management to follow. Date Signed: 03/06/2018 04:35 PM Electronically Signed By:Jamilah Coronado RN
--- NOTE | 2018-03-06 17:42 | GCON ---
[f rep st] CONSULTATION PULMONARY CONSULTATION DATE OF CONSULTATION: 03/06/2018 HISTORY OF PRESENT ILLNESS: This patient is a 22-year-old male with a history of poorly documented a sthma, supraventricular tachycardia, and pneumonia last year, who was admitted on 03/03, complaining of shortness of breath. He lived in [place] prior to moving to [place] a couple of years ago and did not have much trouble at that time, but was told he had asthma. He has never done pulmonary func tion tests in the past and seemed to be controlled with as needed albuterol. After moving to [facility], he had more difficulty and was started on QVAR and seemed to be relatively stable with that. Mead michael, he did develop chills, sore throat, and fever, and went to Urgent Care prior to admission. He w as diagnosed with pneumonia and was given antibiotics, but he had not yet filled them because his isabelle athing became worse and on arrival, he was found to be hypoxemic and was put on 5 L of oxygen. A [facility] x-ray showed no infiltrates or effusions or abnormalities. He is a nonsmoker and no drug use and has been slow to recover, though today he said he felt he was turning a corner and he still had signi ficant wheezing and oxygen requirement. REVIEW OF SYSTEMS: Otherwise negative. PAST MEDICAL HISTORY: 1. Asthma. 2. Pneumonia. 3. SVT in the past. PAST SURGICAL HISTORY: Includes ablation. These details were not discussed in detail today. SOCIAL HISTORY: As I said, he is a nonsmoker. Occasional alcohol. FAMILY HISTORY: Does not include asthma. HOME MEDICATIONS: Include QVAR and albuterol only. ALLERGIES: None. MEDICATIONS: At this time include Tylenol, albuterol, Zithromax, QVAR, Tessalon, Robitussin, Motrin, Xopenex, and prednisone. PHYSICAL EXAM: VITAL SIGNS: He has been afebrile. At the time of my evaluation, his blood pressure is 115/80, heart rate of 114, respirations 18, oxygen saturation 90% on 2 L OxyMask. GENERAL: He i s a very pleasant man in no apparent distress and he was able to speak in full sentences primarily wi thout using accessory muscles for breathing. HEENT: Pupils equally round and reactive to light, non icteric and noninjected. Mucous membranes are moist without erythema or exudate. No evidence of thr ush. RESPIRATORY: Breath sounds revealed really sort of coarse breath sounds with both inspiration and expiration, which are probably wheezes. HEART: Had a regular rate and rhythm without obvious mu rmurs, rubs, or gallops. ABDOMEN: Soft, nontender, nondistended without hepatosplenomegaly. EXTREM ITIES: Show no clubbing, cyanosis, or edema. NEUROLOGIC: Nonfocal, including cranial nerves, deep tendon reflexes. SKIN: Warm and dry, without evidence of rash. OBJECTIVE DATA: Includes a chest x-ray, as described above. His white count is 11.2, hematocrit 47, platelets 272. Basic metabolic panel was unremarkable. ASSESSMENT/PLAN: 1. Asthma exacerbation that may be related to underlying bronchitis who is slow to come around. Torob stone, I suggested he change to IV steroids, add some Mucomyst and started a long-acting agent such as A dvair in place of his QVAR at this time. At some point, he will stabilize and we can do outpatient p ulmonary function tests to better clarify his underlying diagnosis. 2. Hypoxemia related to #1. We simply have titrated oxygen as well as tolerated. I see no evidence of other more ominous problem such as pulmonary embolism or acute coronary syndrome at this time. /[id number]/MODL
[2018-03-06] MEDS: FLUTICASONE/SALMETER 250/50MCG DISKUS IH SCH (20:47)
[2018-03-07] MEDS: LEVALBUTEROL 1.25 MG/3 ML DEYVIAL IH SCH ×3 (05:00→23:06)
[2018-03-07] MEDS: ACETYLCYSTEINE 10% IH/PO 4 ML VIAL IH SCH ×4 (05:01→23:07)
[2018-03-07] MEDS: methylPREDNISolone SOD SUCC 40 MG/ML VIAL IVP SCH ×3 (07:20→22:58)
[2018-03-07] MEDS: AZITHROMYCIN 250 MG TAB PO SCH (08:19)
--- NOTE | 2018-03-07 09:37 | HOSPPROG ---
Hospitalist Progress Note Assessment/Plan: 22 yo M w severe asthma exacerbation and AHRF Asthma exacerbation -steroids, nebs -very slow improvement - consult pulmonary -change to IV steroids -add Mucomyst improved today Acute hypoxemic respiratory failure - down to 1 L RA challenge today Viral bronchitis - positive rhinovirus -DC abx proph: low risk ambulatory Subjective: case d/w dr pierre. per pt, symptomatically improved. cxr w no infiltrate, airway diease (interp by me) Objective: Vital Signs Temp Pulse Resp BP Pulse Ox 37.0 C 112 H 13 113/73 91 L 03/07/18 07:41 03/07/18 07:41 03/07/18 07:41 03/07/18 07:41 03/07/18 07:41 Microbiology 03/06/18 13:55 - Final Sputum, Expectorated Laboratory Results 03/06/18 09:21 03/06/18 09:21 03/06/18 03/07/18 03/08/18 05:59 05:59 05:59 Intake Total 420 420 Balance 420 420 - Physical Exam Constitutional: no apparent distress, appears nourished Eyes: PERRL, anicteric sclera Ears, Nose, Mouth, Throat: moist mucous membranes, hearing normal Cardiovascular: regular rate and rhythym, no murmur, rub, or gallop Respiratory: no respiratory distress, other (scattered rhonchi and expiratory wheezes. good air movement, prolonged expiratory phase) Gastrointestinal: normoactive bowel sounds, soft, non-tender abdomen Genitourinary: No cabrera in urethra Skin: warm, normal color Musculoskeletal: full muscle strength, no muscle tenderness Neurologic: AAOx3 ICD10 Worksheet Patient Problems: Problems Problem Status Onset Cough Acute Exacerbation of asthma Acute Hypoxemia Acute Tachycardia Acute Acute bronchitis Acute
[2018-03-07] MEDS: ALBUTEROL 3 ML DEYVIAL IH PRN (10:48)
[2018-03-07] MEDS: FLUTICASONE/SALMETER 250/50MCG DISKUS IH SCH ×2 (10:51→19:10)
--- NOTE | 2018-03-07 14:14 | PDINTPN ---
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 he was a bit stagnant after treatment with abx, and po steroids so was changed to IV steroids with the addition of advair and mucomyst. * asthma exacerbation- improving. Would continue IV steroids for today as well as advair. Rhinovirus detected so abx dc'd. Continue with nebs and added IS * Hypoxemia- likely 2/2 above. encouraged OOB, IS etc. * Subjective: feels better Objective: Vital Signs Temp Pulse Resp BP Pulse Ox 36.6 C 117 H 18 127/81 H 90 L 03/07/18 11:30 03/07/18 11:30 03/07/18 11:30 03/07/18 11:30 03/07/18 11:30 Microbiology 03/06/18 13:55 - Final Sputum, Expectorated Laboratory Results 03/06/18 09:21 03/06/18 09:21 03/06/18 03/07/18 03/08/18 05:59 05:59 05:59 Intake Total 420 420 Balance 420 420 Physical Exam - Physical Exam General Appearance: WD/WN, alert, no apparent distress EENT: PERRL/EOMI Neck: supple Respiratory: rales, wheezing, prolonged expiration, No respiratory distress, No accessory muscle use Cardiac/Chest: regular rate, rhythm, No edema Abdomen: non-tender, soft, No distended Skin: normal color, warm/dry, No cyanosis Lymphatic: no adenopathy Extremities: No pedal edema Neuro/Psych: alert, normal mood/affect, oriented x 3 ICD10 Worksheet Patient Problems: Problems Problem Status Onset Cough Acute Exacerbation of asthma Acute Hypoxemia Acute Tachycardia Acute Acute bronchitis Acute
--- NOTE | 2018-03-07 15:57 | ASMTCMCOM ---
CM Note CM Note Notes: 03/07/2018 Case Management Note Pt confirmed that Dr. Bryan Sam is covered by insurance and is pt preferred unemployment benefits claims taker after discharge. Pt confirmed that Dr. Bettencourt is a covered provider for PCP. Notified admissions. If appropriate at d/c case management will make follow up appointments with Dr. Bettencourt and/or Dr. Sam. There are no other case management d/c needs identified. Date Signed: 03/07/2018 03:56 PM Electronically Signed By:Jamilah Coronado RN
[2018-03-08] MEDS: ACETYLCYSTEINE 10% IH/PO 4 ML VIAL IH SCH ×2 (05:58→11:12)
[2018-03-08] MEDS: LEVALBUTEROL 1.25 MG/3 ML DEYVIAL IH SCH ×2 (05:58→14:08)
[2018-03-08] MEDS: methylPREDNISolone SOD SUCC 40 MG/ML VIAL IVP SCH (06:04)
[2018-03-08] MEDS: FLUTICASONE/SALMETER 250/50MCG DISKUS IH SCH (09:05)
[2018-03-08 12:04] VITALS: BP 124/70
[2018-03-08] MEDS ORDERED: IOPAMIDOL (ISOVUE 370) 100 ML BTL IV ONE (12:15)
--- NOTE | 2018-03-08 13:16 | HOSPPROG ---
Hospitalist Progress Note Assessment/Plan: 22 yo M w severe asthma exacerbation and AHRF Asthma exacerbation -steroids, nebs -very slow improvement - consult pulmonary -change to IV steroids -add Mucomyst improved today Acute hypoxemic respiratory failure - resolved Viral bronchitis - positive rhinovirus -DC abx proph: low risk ambulatory dispo: home today see dc summary Subjective: passed ambulatory RA challenge. ready for dc Objective: Vital Signs Temp Pulse Resp BP Pulse Ox 36.9 C 106 H 17 124/70 H 88 L 03/08/18 12:00 03/08/18 12:00 03/08/18 12:00 03/08/18 12:00 03/08/18 13:12 Microbiology 03/06/18 13:55 - Final Sputum, Expectorated Sputum Culture - Final Laboratory Results 03/06/18 09:21 03/06/18 09:21 03/07/18 03/08/18 03/09/18 05:59 05:59 05:59 Intake Total 420 Balance 420 - Physical Exam Constitutional: no apparent distress, appears nourished Eyes: PERRL, anicteric sclera Ears, Nose, Mouth, Throat: moist mucous membranes, hearing normal Cardiovascular: regular rate and rhythym, no murmur, rub, or gallop Respiratory: no respiratory distress, other (good air movement, rhonchi w wheezes), No no rales or rhonchi Gastrointestinal: normoactive bowel sounds, soft, non-tender abdomen Genitourinary: No cabrera in urethra Skin: warm Musculoskeletal: full muscle strength, no muscle tenderness Neurologic: AAOx3 Psychiatric: interacting appropriately ICD10 Worksheet Patient Problems: Problems Problem Status Onset Cough Acute Exacerbation of asthma Acute Hypoxemia Acute Tachycardia Acute Acute bronchitis Acute
--- NOTE | 2018-03-08 13:51 | ASDISCHSUM ---
Discharge Information Plan Status:Home with No Needs Medically Cleared to Leave:03/08/2018 Discharge Date:03/08/2018 CM D/C Disposition:Home, Routine, Self-Care ADT D/C Disposition: Projected Discharge Date:03/08/2018 Transportation at D/C:Family Discharge Delay Reason: Follow-Up Date:03/08/2018 Discharge Slot: Final Diagnosis: Placement Information Patient Contact Information Contact Name:PATEL Relationship:Father Address:[address] [place] [address] Work Phone: City:[place] [facility] Phone: State/Zip Code:[place] [address] Email: Financial Information Financial Class:O and PPO Plans Primary Plan Desc: OUT OF STATE PPO Primary Plan Number:[id number] Secondary Plan Desc: Secondary Plan Number: Assessment Information LACE LACE Length of stay for Answers: 4-6 days current admission Acuity / Level of Answers: Yes Care: Did the patient have an inpatient admission? Comorbidities - select Answers: Other Notes: Hx of asthma; SVT all that apply # of Emergency department Answers: 1-2 visits in the last 6 months Score: 9 Date Signed: 03/08/2018 01:50 PM Electronically Signed By:Jamilah Coronado RN [facility] CM Progress Note CM Note CM Note Notes: Patient with asthma presents with an exacerbation r/t rhinovirus infection. He had been diagnosed with PNA at urgent care - we will consider d/c'ing antibiotics. He is being treated with steroids and nebulizers. Patient lives independently with roommates, is employed at [employer]. I anticipate he will discharge independently; Case Management available for any needs. Date Signed: 03/05/2018 10:43 AM Electronically Signed By:Olesya Suarez RN [facility] CM Progress Note CM Note CM Note Notes: Patient needs a PCP. I gave him the phone # for [facility] central scheduling. He will call to make an appointment before he's discharged. Date Signed: 03/05/2018 04:31 PM Electronically Signed By:Olesya Suarez RN [facility] CM Progress Note CM Note CM Note Notes: 03/06/2018 Case Management Note Met w/pt and girlfrienrob Lipscomb [phone] to discuss need for appointments after discharge. Pt requested case management contact father David Bender to sort out which MD's are covered by insurance. David can be reached at [phone]. David requested an email sent to [email or web address] Sent email requesting a survey questionnaire designer as well as a bend sorter for follow after d/c. David to check if [facility] is covered by insurance, if Dr. Bryan Sam [facility] bend sorter is covered and which survey questionnaire designer is covered. David to call back or email back info. Case Management did not identify any further d/c needs. Case Management to set follow up appointmets pending info from David. Case Management to follow. Date Signed: 03/06/2018 04:35 PM Electronically Signed By:Jamilah Coronado RN [facility] CM Progress Note CM Note CM Note Notes: 03/07/2018 Case Management Note Pt confirmed that Dr. Bryan Sam is covered by insurance and is pt preferred bend sorter after discharge. Pt confirmed that Dr. Bettencourt is a covered provider for PCP. Notified admissions. If appropriate at d/c case management will make follow up appointments with Dr. Bettencourt and/or Dr. Sam. There are no other case management d/c needs identified. Date Signed: 03/07/2018 03:56 PM Electronically Signed By:Jamilah Coronado RN Case Management Discharge Plan Note Case Management Discharge Discharge Order Complete? Answers: Yes Patient to Obtain Answers: Independently Medications Discharge Comments Notes: 03/08/2018 Case Management Note Pt to discharge independent with follow up as directed. Case Management notified Dr. Sam's office of need for follow up. Faxed face sheet and instructions to contact pt on Friday to schedule appointment to [phone], number obtained from personnel counselor service for Dr. Sam's office. There are no further case management d/c needs identified. Date Signed: 03/08/2018 01:49 PM Electronically Signed By:Jamilah Coronado RN Intervention Information
--- NOTE | 2018-03-08 13:54 | PDINTPN ---
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 he was a bit stagnant after treatment with abx, and po steroids so was changed to IV steroids with the addition of advair and mucomyst. * asthma exacerbation- improving. OK for dc home from my perspective. Continue advair and prednisone taper over next 2-3 weeks. See me in office for PFTs once stabilize * Hypoxemia- likely 2/2 above. encouraged OOB, IS etc. Sat 89-90 on RA at rest. Trial ambulatory O2 demands * 03/08/18 13:53 Subjective: feels better and wants to go home Objective: Vital Signs Temp Pulse Resp BP Pulse Ox 36.9 C 106 H 17 124/70 H 88 L 03/08/18 12:00 03/08/18 12:00 03/08/18 12:00 03/08/18 12:00 03/08/18 13:12 Microbiology 03/06/18 13:55 - Final Sputum, Expectorated Sputum Culture - Final Laboratory Results 03/06/18 09:21 03/06/18 09:21 03/07/18 03/08/18 03/09/18 05:59 05:59 05:59 Intake Total 420 Balance 420 Physical Exam - Physical Exam General Appearance: alert, no apparent distress, thin EENT: PERRL/EOMI Neck: supple Respiratory: crackles, rales, wheezing, No respiratory distress, No accessory muscle use Cardiac/Chest: regular rate, rhythm, No edema Abdomen: non-tender, soft, No distended Skin: normal color, warm/dry, No cyanosis Lymphatic: no adenopathy Extremities: No pedal edema Neuro/Psych: alert, normal mood/affect, oriented x 3 ICD10 Worksheet Patient Problems: Problems Problem Status Onset Cough Acute Exacerbation of asthma Acute Hypoxemia Acute Tachycardia Acute Acute bronchitis Acute
--- NOTE | 2018-03-08 21:15 | GDS ---
[f rep st] DISCHARGE SUMMARY DISCHARGE DIAGNOSES: 1. Severe asthma exacerbation. 2. Acute hypoxemic respiratory failure, now resolved. 3. Viral bronchitis with Rhinovirus. CONSULTATIONS: Pulmonary. HOSPITAL COURSE: Please see admission history and physical by Dr. Le Torres. The patient prese nted with increased work of breathing and hypoxemic respiratory failure. He had a clear chest x-ray. He was having increased work of breathing. He was treated with steroids. He was slow to improve. Pulmonary was consulted who increased his steroids to IV. The patient had been a respiratory panel consistent with enterovirus. He did not have fever. He received a brief course of azithromycin that was then discontinued. On the day of discharge, the patient was ambulating well with 88% on room ai r higher without shortness of breath and ready for discharge. DISCHARGE MEDICATIONS: New prescriptions are Advair, prednisone taper, and albuterol refill. /[id number]/MODL
== END 2018-03-08 14:19 | disposition home or self-care (01) | DRG 202 ==
LOC: F2W 19:45 → OBSVTOIN 03-04 12:32
PROVIDERS: ADMIT Internal Medicine; ATTEND Internal Medicine
DX: J45.41 Moderate persistent asthma with (acute) exacerbation (principal); J96.01 Acute respiratory failure with hypoxia; J20.6 Acute bronchitis due to rhinovirus; I47.1 Supraventricular tachycardia; E86.0 Dehydration; Z87.891 Personal history of nicotine dependence; Z87.01 Personal history of pneumonia (recurrent); Z23 Encounter for immunization
CPT/HCPCS: 96374; G0009; G0378; J0456; J1100; J2405; J2920; J7512; J7613; Q9967